=== PATIENT | male | born 1990 | race African-American/Black ===

== ENCOUNTER 2016-09-30 15:18 | Emergency (ER) | payer OTHER ==
[2016-09-30 15:54] LABS: URINE SOURCE CLEAN CATCH
[2016-09-30 16:07] LABS: URINE APPEARANCE CLEAR; URINE BILIRUBIN NEG (NEG); URINE BLOOD TRACE (NEG); URINE COLOR YELLOW; URINE GLUCOSE NEG (NEG); URINE KETONE TRACE (NEG); URINE LEUKOCYTE ESTERASE 2+ (NEG); URINE NITRATE NEG (NEG); URINE PROTEIN TRACE (NEG); URINE SPECIFIC GRAVITY 1.027 (1.003-1.035)
[2016-09-30 16:11] LABS: CULTURE INDICATED? YES; URINE BACTERIA AUWI NEG (NEGATIVE); URINE SQUAMOUS EPITHELIAL CELL NONE SEEN /[HPF]; UWBCS1 AUWI 100-200 (0-5)
[2016-09-30 16:37] LABS: URINE MUCUS PRESENT
[2016-10-03 08:11] LABS: CHLAMYDIA TRACH Not Detected (Not Detected); N GONOR Detected (Not Detected)
== END 2016-09-30 17:03 | disposition home or self-care (01) ==
LOC: CED 15:18 → CFTX 15:18 → CED 16:24 → CFTX 16:24
PROVIDERS: Emergency Medicine
DX: N30.00 Acute cystitis without hematuria (principal); N34.2 Other urethritis; F17.200 Nicotine dependence, unspecified, uncomplicated
CPT/HCPCS: 81003; 87086; 87491; 87591; 96372; 99283; J0696

== ENCOUNTER 2017-01-08 10:49 | Emergency (ER) | payer OTHER ==
[~2017-01-08] VITALS: Ht 172.7 cm; Wt 104.3 kg
[2017-01-08 11:04] LABS: URINE SOURCE CLEAN CATCH
[2017-01-08 11:09] LABS: URINE APPEARANCE CLOUDY; URINE BILIRUBIN NEG (NEG); URINE BLOOD TRACE (NEG); URINE COLOR YELLOW; URINE GLUCOSE NEG (NEG); URINE KETONE NEG (NEG); URINE LEUKOCYTE ESTERASE 3+ (NEG); URINE NITRATE NEG (NEG); URINE PH 6.5 (5-8); URINE PROTEIN NEG (NEG); URINE SPECIFIC GRAVITY 1.022 (1.003-1.035); URINE UROBILINOGEN 0.2 MG/DL (NEG)
[2017-01-08 11:12] LABS: CULTURE INDICATED? YES; URINE BACTERIA AUWI NEG (NEGATIVE); URINE SQUAMOUS EPITHELIAL CELL NONE SEEN /[HPF]; UWBCS1 AUWI INNUM (0-5)
[2017-01-10 10:30] LABS: CHLAMYDIA TRACH Not Detected (Not Detected); N GONOR Detected (Not Detected)
== END 2017-01-08 11:30 | disposition home or self-care (01) ==
LOC: CFTX 10:49 → CED 10:49 → CFTX 11:15
PROVIDERS: Physician Assistant
DX: N34.1 Nonspecific urethritis (principal); I10 Essential (primary) hypertension; F17.200 Nicotine dependence, unspecified, uncomplicated
CPT/HCPCS: 81003; 87086; 87491; 87591; 96372; 99283; J0696